=== PATIENT | female | born 1950 | race Native Hawaiian/Other Pacific Islander ===

== ENCOUNTER 2016-06-05 23:37 | Observation (INO) | payer BC ==
[2016-06-05 23:50] VITALS: BMI 25.8
--- NOTE | 2016-06-06 00:13 | ED PDOC ---
Arrival/HPI - General Chief Complaint: High Blood Pressure Time Seen by Provider: 06/05/16 23:45 Historian: Patient - History of Present Illness Narrative History of Present Illness (Text): 06/06/16 00:06 Emmie Rodriguez is a 66 year old female, with a history of hypertension, presents to the emergency department complaining of elevated blood pressure with headache and left arm weakness. Patient states that she has had decreased blood pressure for 4 days and states she has not taken Losartan for that reason. Patient states she only took HCTZ. She states that she developed a headache at 5 :00 pm while watching TV. She states that she checked her blood pressure 2 hours ago which was 180/103 after which she developed left arm weakness. States she took Losartan 2 hours prior. Denies fever, chills, dizziness, chest pain, SOB, nausea, vomiting, diarrhea, or any other complaints at this time. Time/Duration: 1-3 hours Symptom Onset: Gradual Symptom Course: Unchanged Severity Level: Mild Activities at Onset: Light Context: Home Past Medical History - Provider Review Nursing Documentation Reviewed: Yes - Infectious Disease Hx of Infectious Diseases: None - Cardiac Hx Hypertension: Yes - Psychiatric Hx Substance Use: No - Surgical History Hx Dilation and Curettage: Yes Hx Orthopedic Surgery: Yes (R tib/fib fx) Other/Comment: Mammoplasty. Carpal tunnel sx reginald hands - Anesthesia Hx Anesthesia: Yes Hx Anesthesia Reactions: No Hx Malignant Hyperthermia: No Family/Social History - Physician Review Nursing Documentation Reviewed: Yes Family/Social History: No Known Family HX Smoking Status: Never Smoked Hx Alcohol Use: No Hx Substance Use: No Allergies/Home Meds Allergies/Adverse Reactions: Allergies No Known Allergies Allergy (Unverified 06/06/16 00:03) Review of Systems - Physician Review All systems were reviewed & negative as marked: Yes - Review of Systems Constitutional: Normal. absent: Fatigue, Fevers Respiratory: Normal. absent: SOB, Cough, Sputum Cardiovascular: Normal. absent: Chest Pain, Palpitations Gastrointestinal: Normal. absent: Abdominal Pain, Diarrhea, Nausea, Vomiting Genitourinary Female: Normal. absent: Dysuria Neurological: Headache, Other (left arm weakness ). absent: Dizziness, Focal Weakness, Facial Droop Psychiatric: Normal Physical Exam Vital Signs Reviewed: Yes Vital Signs Pulse Resp BP Pulse Ox 06/06/16 01:43 74 16 142/86 99 Temperature: Afebrile Blood Pressure: Hypertensive Pulse: Regular Respiratory Rate: Normal Appearance: Positive for: Well-Appearing, Non-Toxic, Comfortable Pain Distress: None Mental Status: Positive for: Alert and Oriented X 3 - Systems Exam Head: Present: Atraumatic, Normocephalic Pupils: Present: PERRL Extroacular Muscles: Present: EOMI Conjunctiva: Present: Normal Respiratory/Chest: Present: Clear to Auscultation, Good Air Exchange. No: Respiratory Distress, Accessory Muscle Use Cardiovascular: Present: Regular Rate and Rhythm, Normal S1, S2. No: Murmurs Abdomen: Present: Normal Bowel Sounds. No: Tenderness, Distention, Peritoneal Signs Upper Extremity: Present: Normal Inspection, Normal ROM, NORMAL PULSES, Other ( good special education kindergarten teacher strength. No drift noted ). No: Cyanosis, Edema Lower Extremity: Present: Normal Inspection, NORMAL PULSES, Normal ROM. No: Edema Neurological: Present: GCS=15, CN II-XII Intact, Speech Normal Skin: Present: Warm, Dry, Normal Color. No: Rashes Psychiatric: Present: Alert, Oriented x 3, Normal Insight, Normal Concentration Medical Decision Making ED Course and Treatment: 06/06/16 00:00 Impression: A 66 year old female who presents to ed with headache since 5 pm yesterday and left arm weakness for past 2 hours. On PE, patient has good special education kindergarten teacher strength, no drift, no facial droop, and normal speech. Differential Diagnosis: Left arm weakness: r/o stroke Plan: -- EKG -- CT Head -- Labs, cardiac enzymes -- CXR Progress Notes: 06/06/16 00:03 Patient has left arm weakness. Code stroke initiated. 06/06/16 00:10 Case discussed with , neurologist, who does not recommend tPA administration, secondary to NIHSS score of 0. No weakness or numbness on physical exam. Aspirin ordered. 06/06/16 00:22 CT Head results reviewed: IMPRESSION: No acute findings. 06/06/16 01:19 CXR interpreted by me: No active disease. Case was discussed with Dr. Lutz who agrees to place her on telemetry obs for headache with subjective left arm weakness r/o CVA. - Critical Care Critical Care Minutes: 30 minutes - Lab Interpretations Lab Results: 06/06/16 00:15 06/06/16 00:15 Lab Results 06/06/16 00:15: WBC 7.8, RBC 4.56, Hgb 14.3, Hct 40.0, MCV 87.7, MCH 31.4, MCHC 35.8, RDW 12.8, Plt Count 236, MPV 10.9, Gran % 60.1, Lymph % (Auto) 26.6, [place] % (Auto) 7.4 H, Eos % (Auto) 5.4 H, Baso % (Auto) 0.5, Gran # 4.69, Lymph # 2.1 , [place] # 0.6, Eos # 0.4, Baso # 0.04, PT 10.6, INR 0.98, APTT 26.5, Sodium 139, Potassium 3.9, Chloride 101, Carbon Dioxide 31, Anion Gap 11, BUN 26 H, Creatinine 0.8, Est GFR ( Amer) > 60, Est GFR (Non-Af Amer) > 60, Random Glucose 122 H, Calcium 9.8, Total Bilirubin 0.5, AST 34, ALT 22, Alkaline Phosphatase 63, Troponin I < 0.01, Total Protein 7.8, Albumin 4.2, Globulin 3.6 , Albumin/Globulin Ratio 1.2, Triglycerides 226 H, Cholesterol 208 H, LDL Cholesterol Direct 116, HDL Cholesterol 48, Blood Type A POSITIVE, Antibody Screen Negative, BBK History Checked No verified bt I have reviewed the lab results: Yes - RAD Interpretation Narrative RAD Interpretations (Text): EXAM: CT Head Without Intravenous Contrast. FINDINGS: Brain: No acute findings. No hemorrhage. No significant white matter disease. No edema. Ventricles: No acute findings. No ventriculomegaly. Bones/joints: No acute findings. No acute fracture. Soft tissues: No acute findings. Sinuses: No acute findings. No acute sinusitis. Mastoid air cells: No acute findings. No mastoid effusion. IMPRESSION: No acute findings. Radiology Orders: 06/06/16 00:04 HEAD W/O (CODE STROKE) [CT] Stat 06/06/16 00:05 CHEST PORTABLE [RAD] Stat Lead Janitor: Radiologist - EKG Interpretation Interpreted by ED Physician: Yes Type: 12 lead EKG - Medication Orders Current Medication Orders: Discontinued Medications Aspirin (Aspirin) 325 mg PO STAT STA Stop: 06/06/16 01:41 NIHSS Scale ([place]) Time Performed: 00:00 - How Severe is the Stoke Baseline Level of Consciousness: 0=Alert LOC to Questions: 0=Both comments correct LOC to commands: 0=Obeys both correctly Best Gaze: 0=Normal Visual: 0=No visual loss Facial: 0=Normal Motor Arm - Left: 0=No drift Motor Arm - Right: 0=No drift Motor Leg - Left: 0=No drift Motor Leg - Right: 0=No drift Limb Ataxia: 0=Absent Sensory: 0=Normal Best Language: 0=No aphasia Dysarthia: 0=Normal articulation Extinction & Inattention (Neglect): 0=Normal, no object Score: 0 Risk Level: No Stroke Risk rTPA Inclusion/Exclusion - Refusal of Treatment Patient Refused Treatment: No - Inclusion Criteria for Altepase Patient is 18 years or Older: Yes The Clinical Diagnosis of Ischemic Stroke That is Causing a Potentially Disabling Neurological Deficit: Yes Time of Onset is Well Established to be Less Than 270 Minute Before Treatment Would Begin: Yes Risk/Benefit Discussed With Patient/Family Member Present: No - Exclusion Criteria for Altepase Uncontrolled Hypertension at Time of Treatment (Systolic BP above 185 or Diastolic BP above 110 mmHg): No - Warning to TPA With Conditions Following Conditions Weighed Against Anticipated Benefit: Yes Condition: Stroke Serevity Too Mild - Scribe Statement The provider has reviewed the documentation as recorded by the Cristi Muniz Provider Attestation: All medical record entries made by the Ortizibmarquez were at my direction and personally dictated by me. I have reviewed the chart and agree that the record accurately reflects my personal performance of the history, physical exam, medical decision making, and the department course for this patient. I have also personally directed, reviewed, and agree with the discharge instructions and disposition. Disposition/Present on Arrival - Present on Arrival Any Indicators Present on Arrival: No History of DVT/PE: No History of Uncontrolled Diabetes: No Urinary Catheter: No History of Decub. Ulcer: No History Surgical Site Infection Following: None - Disposition Have Diagnosis and Disposition been Completed?: Yes Diagnosis: Cerebrovascular accident (CVA), Hypertension Disposition: HOSPITALIZED Disposition Time: 02:01 Patient Plan: Observation Condition: FAIR
[2016-06-06 00:33] LABS: ADD MANUAL DIFF? NO
[2016-06-06 00:38] LABS: BASO # 0.04 K/mm3 (0.0-2.0); BASO % 0.5 % (0.0-3.0); EOS # 0.4 (0.0-0.7); EOS % 5.4 % (1.5-5.0); GRAN # 4.69 (1.4-6.5); GRAN % 60.1 % (50.0-68.0); LYMPH # 2.1 (1.2-3.4); LYMPH % 26.6 % (22.0-35.0); MEAN CELL VOLUME 87.7 fL (80.0-105.0); MEAN CORPUSCULAR HEMOGLOBIN 31.4 pg (25.0-35.0); MEAN CORPUSCULAR HGB CONC 35.8 g/dl (31.0-37.0); MEAN PLATELET VOLUME 10.9 fl (7.0-11.0); MONO # 0.6 (0.1-0.6); MONO % 7.4 % (1.0-6.0); PLATELET COUNT 236 10^3/uL (120.0-450.0); RED CELL DISTRIBUTION WIDTH 12.8 % (11.5-14.5); WHITE BLOOD COUNT 7.8 10^3/ul (4.5-11.0)
[2016-06-06 00:45] LABS: ALB/GLOB RATIO 1.2 (1.1-1.8); ALKALINE PHOSPHATASE 63 U/L (38-133); ALT/SGPT 22 U/L (7-56); AST/SGOT 34 U/L (15-39); BILIRUBIN,TOTAL 0.5 mg/dL (0.2-1.3); BLOOD UREA NITROGEN 26 mg/dL (7-21); CALCIUM 9.8 mg/dL (8.4-10.5); CARBON DIOXIDE 31 mmol/L (21-33); CHLORIDE 101 mmol/L (98-107); CHOLESTEROL 208 mg/dL (130-200); GFR AFRICAN-AMERICAN > 60; GLUCOSE,RANDOM 122 mg/dL (70-110); INR 0.98 (0.93-1.08); PARTIAL THROMBOPLASTIN TIME 26.5 Seconds (23.7-30.8); POTASSIUM 3.9 mmol/L (3.6-5.0); SODIUM 139 mmol/L (132-148); TOTAL PROTEIN 7.8 g/dL (5.8-8.3)
[2016-06-06 00:54] LABS: TROPONIN I < 0.01 ng/mL
--- NOTE | 2016-06-06 07:28 | CT ---
PROCEDURE: CT HEAD WITHOUT CONTRAST. HISTORY: Headache with left arm weakness COMPARISON: None available. TECHNIQUE: Axial computed tomography images were obtained through the head/brain without intravenous contrast. Radiation dose: Total exam DLP = 688.17 mGy-cm. FINDINGS: HEMORRHAGE: No intracranial hemorrhage. BRAIN: Sorto-white matter differentiation is preserved. There is no mass, mass effect or abnormal extra-axial fluid collection. There are symmetric senile calcifications in bilateral globus paladii. VENTRICLES: The ventricles are normal in size, shape and configuration. CALVARIUM: The skull base and calvarium are normal. PARANASAL SINUSES: Predominantly clear. MASTOID AIR CELLS: Predominantly clear. OTHER FINDINGS: None. IMPRESSION: No acute intracranial abnormality. If there is a persistent focal neurologic deficit and an ongoing clinical concern for acute infarction, an MRI of the brain without intravenous contrast would be a more sensitive modality for evaluation of hyperacute/acute ischemic infarction. A preliminary report was provided by [employer] services.
[2016-06-06 08:22] LABS: HEMATOCRIT 38.4 % (36.0-48.0); MEAN CELL VOLUME 87.3 fL (80.0-105.0); MEAN CORPUSCULAR HEMOGLOBIN 30.2 pg (25.0-35.0); MEAN CORPUSCULAR HGB CONC 34.6 g/dl (31.0-37.0); MEAN PLATELET VOLUME 11.2 fl (7.0-11.0); RED CELL DISTRIBUTION WIDTH 12.7 % (11.5-14.5); WHITE BLOOD COUNT 6.7 10^3/ul (4.5-11.0)
[2016-06-06 08:28] LABS: ALB/GLOB RATIO 1.1 (1.1-1.8); ALKALINE PHOSPHATASE 56 U/L (38-133); ALT/SGPT 26 U/L (7-56); AST/SGOT 32 U/L (15-39); BILIRUBIN,TOTAL 0.5 mg/dL (0.2-1.3); BLOOD UREA NITROGEN 20 mg/dL (7-21); CALCIUM 9.4 mg/dL (8.4-10.5); CARBON DIOXIDE 29 mmol/L (21-33); CHLORIDE 102 mmol/L (98-107); GFR AFRICAN-AMERICAN > 60; GLUCOSE,RANDOM 103 mg/dL (70-110); POTASSIUM 3.4 mmol/L (3.6-5.0); SODIUM 140 mmol/L (132-148); TOTAL PROTEIN 7.2 g/dL (5.8-8.3)
--- NOTE | 2016-06-06 09:12 | RAD ---
HISTORY: code stroke COMPARISON: No prior. FINDINGS: LUNGS: No active pulmonary disease. PLEURA: No significant pleural effusion identified, no pneumothorax apparent. CARDIOVASCULAR: Normal. OSSEOUS STRUCTURES: No significant abnormalities. VISUALIZED UPPER ABDOMEN: Normal. OTHER FINDINGS: None. IMPRESSION: No active disease.
--- NOTE | 2016-06-06 10:25 | CARD ---
APPROVED REPORT EKG Measurement Heart [id number] VT [id number] [id number] <Conclusion> Normal sinus rhythm Small inferior q waves NSSTW changes
--- NOTE | 2016-06-06 10:30 | MRI ---
PROCEDURE: MRI BRAIN WITHOUT CONTRAST HISTORY: headache COMPARISON: None. TECHNIQUE: Multiplanar, multisequence MR images of the brain were obtained without intravenous contrast enhancement. FINDINGS: HEMORRHAGE: None DWI: No evidence of an acute or early subacute infarction. BRAIN PARENCHYMA: No mass effect or edema. No atrophy or chronic microvascular ischemic changes. VENTRICLES: Unremarkable. No hydrocephalus. CRANIUM: Unremarkable. ORBITS: Grossly unremarkable. PARANASAL SINUSES/MASTOIDS: Clear VASCULAR SYSTEM: Skull base flow voids intact. OTHER FINDINGS: None. IMPRESSION: Unremarkable non contrast enhanced MRI of the brain.
--- NOTE | 2016-06-06 11:33 | CON ---
DATE: 06/06/2016 REASON FOR CONSULTATION: Headache and left arm heaviness. HISTORY OF PRESENTING ILLNESS: The patient is a 66-year-old female who I have been asked for evaluat ion of headaches and left arm heaviness. The patient was at home and noticed that she was experienci ng headache. At that time, she took her blood pressure and it was in 150s. Later on, she continued to have increase in her blood pressure and it went up to 180s, and she decided to come to the Emergen cy Room. She was experiencing headache mainly in the back of the head. Headache was not associated with any nausea, vomiting, photophobia, or phonophobia. Once the blood pressure got better, her head ache also got better. She was experiencing some heaviness in the left arm. She did not have any wea kness in her left arm or leg. Denied any numbness, tingling sensation in arm or leg. At the moment, she feels a lot better. REVIEW OF SYSTEMS: Denies any dizziness, chest pain, shortness of breath, abdominal pain, constipati on, diarrhea, dysuria, pyuria, cough, or sputum production. PAST MEDICAL HISTORY: Hypertension. MEDICATIONS AT HOME: Include hydrochlorothiazide, Crestor, and Cozaar. ALLERGIES: ADHESIVE TAPE. SOCIAL HISTORY: Denies smoking, use of alcohol, or illicit drugs. FAMILY HISTORY: Reviewed and noncontributory to the case. GENERAL PHYSICAL EXAMINATION: The patient is a middle-aged female lying on the bed in no acute distress. Her blood pressure is 121/75, heart rate is 67 per minute, breathing at a rate of 16 per minute, temp erature is 98.2 degrees Fahrenheit. HENT EXAMINATION: Normocephalic, atraumatic. NECK: Supple. There are no carotid bruits. LUNGS: Clear. CARDIOVASCULAR SYSTEM EXAMINATION: S1 and S2 audible with no murmurs. ABDOMEN: Soft, nontender. Bowel sounds are present. NEUROLOGIC EXAMINATION: MENTAL STATUS: The patient is awake, alert, oriented to time, place, person. Speech is fluent. Nam ing and repetition normal. Memory and cognition are intact. CRANIAL NERVE EXAMINATION: Pupils are 4 mm, bilaterally reactive to light. Visual maya are full. Extraocular movements are intact. There is no facial asymmetry. Palate is upgoing bilaterally and tongue is midline. MOTOR EXAMINATION: Tone is normal. Power is 5/5 bilaterally in all extremities. Reflexes +2 and sy mmetrical. Plantars downgoing bilaterally. CEREBELLAR EXAMINATION: Hhdhiy-[id number] shows no dysmetria. SENSORY EXAMINATION: Intact to soft touch and pinprick. GAIT: Narrow based. Labs reviewed shows WBC of 6.7, hemoglobin 13.3, hematocrit of 38.4 and platelets of 231. INR is 0.9 8. Sodium is 140, potassium is 3.4, chloride 102, carbon dioxide content 29, BUN of 20, creatinine 0 .6, and glucose of 103. She had a CT scan of the head done which is negative for any acute intracranial pathology. IMPRESSION: Headaches, most likely secondary to her elevated blood pressure. RECOMMENDATIONS: 1. The patient to have MRI of the brain without contrast. 2. She never had left arm weakness. It was just a heaviness in the left arm which is also completely resolved. 3. The patient to have p.r.n. Tylenol or nonsteroidal anti-inflammatory drugs like ibuprofen or napro xen for headaches. 4. If the patient's MRI of the brain is negative for any acute intracranial pathology, then the patie nt may be discharged with outpatient followup. Thank you for the opportunity to participate in the care of this patient. Octavio Villalpando MD cc: [id number] TT: 06/06/2016 11:32:58 Confirmation # [id number] Dictation # [id number] indira
[2016-06-06] MEDS ORDERED: Potassium Chloride 20 mEq ER Tab PO SCH (16:00)
--- NOTE | 2016-06-06 16:22 | CON ---
DATE: 06/06/2016 REASON FOR CONSULTATION: Left arm weakness. 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 The patient stated th at the onset of left arm weakness was acute and it took a few hours to relieve, as the blood pressure was controlled. In the Emergency Room, the patient denied any associated arm numbness, speech diffi culty or dizziness. The patient denies any other extremity weakness or numbness. The patient is rosanna saxena of any history of stroke in the past and denies any prior cardiac history other than a history o f hypertension. PAST MEDICAL HISTORY: The patient recently underwent a liver cyst drainage, and the pathology report is still pending. REVIEW OF SYSTEMS: No nausea or vomiting. No blurry vision, dysarthria, imbalance or fall. MEDICATIONS: Cozaar 50 mg once a day, aspirin 81 mg once a day, Lipitor 80 mg once a day, hydrochlor othiazide 12.5 mg once a day, Tricor 145 mg once a day. PHYSICAL EXAMINATION: GENERAL: The patient is a middle-aged female who does not appear to be in any distress. VITAL SIGNS: Blood pressure 138/85, heart rate 68, temperature 98.2, respiration 20. HEENT: Normocephalic. NECK: No JVD. CHEST: Clear. HEART: S1, S2 regular. ABDOMEN: Soft. EXTREMITIES: No edema. LABORATORY DATA: CBC of 6.7, hemoglobin 13.3, hematocrit 38.4, platelet count 231,000. SMA-7: Sodi um 140, potassium 3.4, chloride 102, CO2 29, glucose 103, BUN 20, creatinine 0.6. Two sets of tropon ins are negative. Triglycerides 226, total cholesterol 208. Head CT scan without contrast: No acute findings. Noncontrast brain MRI: No acute findings. EKG r evealed normal sinus rhythm. ASSESSMENT: 1. Uncontrolled hypertension. 2. Consider transient ischemic attack. 3. Hyperlipidemia. 4. Hypokalemia. RECOMMENDATIONS: Continue current Cozaar at 50 mg once a day, aspirin 81 mg once a day, Lipitor at 8 0 mg once a day, hydrochlorothiazide 12.5 mg once a day, Tricor 145 mg once a day. Start K-Dur at 20 mEq once a day. Obtain an echocardiogram. Consider carotid Doppler. Baudilio Harrell MD cc: [id number] TT: 06/06/2016 16:21:56 Confirmation # [id number] Dictation # [id number] mn
--- NOTE | 2016-06-07 04:52 | HP ---
CHIEF COMPLAINT: High blood pressure, headache, left upper extremity heaviness. HISTORY OF PRESENT ILLNESS: The patient is a 66-year-old female with history of hypertension, came t o the Emergency Room complaining about high blood pressure, headache, left arm weakness. The patient stated that she was having low blood pressure for 4 days and she states that she has not taken Losar gamino for that reason. The patient stated that she took only HCTZ. She states that she developed a he adache in the evening when she was watching television and checked her blood pressure 2 hours ago whi ch was 180/103 as per patient, she developed left arm weakness and then she took Losartan, 2 hours pr ior to coming to the Emergency Room. Denies fever, chills, nausea, vomiting and diarrhea. I saw the patient in her room in the presence of her son. The patient was feeling comfortable, seen by the ca rdiologist and neurologist. PAST MEDICAL HISTORY: Orthopedic surgery, right tibia and fibula fracture, carpal tunnel syndrome burgess rgery bilaterally. FAMILY HISTORY: Father and mother noncontributory. HABITS: Never smoked, no drugs, no ethanol. ALLERGIES: The patient is not allergic with any medication. REVIEW OF SYSTEMS: The patient is seen and examined on the bedside in her room, looks comfortable. Headache is better. No fever, no chills, no nausea, vomiting, no shortness of breath. PHYSICAL EXAMINATION: VITAL SIGNS: Temperature 98.3, pulse 72, blood pressure 129/82, respiratory rate 18. HEENT: Normocephalic, atraumatic. EYES: PERRLA. Extraocular muscles intact. Conjunctivae pink. Eyelids unremarkable. Nose patent. NECK: Supple. No carotid bruit, JVD or thyromegaly. CHEST: Bilaterally symmetrical. HEART: S1, S2 positive. LUNGS: Clear to auscultation. ABDOMEN: Soft. Bowel sounds present. No organomegaly. EXTREMITIES: No edema, no cyanosis. NEUROLOGIC: The patient is awake, alert and moving all 4 extremities. No focal deficits. LABORATORY DATA: White blood cells 6.7, hemoglobin 13.3, hematocrit 37.3, platelets 231. Sodium 140 , potassium 3.4, BUN 20, creatinine 0.6. Triglycerides 226, cholesterol 208. ASSESSMENT AND PLAN: The patient is a 66-year-old lady with hypercholesterolemia, hypertriglyceridem ia, hyperglycemia, hypokalemia. She is seen by the calculating machine operator, Dr. Harrell, to rule out arrhythm ias, history of liver cysts or drainage, history of hypertension, history of transient ischemic attac k as per calculating machine operator, continue Cozaar, aspirin, Lipitor, hydrochlorothiazide, Tricor for hypertrigly ceridemia, started K-Dur 20 mEq once a day and sis he wanted to obtain echocardiography, consider car otid Doppler. I ordered a carotid Doppler as per the calculating machine operator's request. The patient is seen by the neurologist by Dr. Villalpando. Headache may be secondary to her elevated blood pressure. CAT scan, M RI is done, reviewed by me, now left arm weakness is better. He suggested noninflammatory nonsteroid al drugs like ibuprofen or naproxen for headache. Actually neurologist is clearing the patient for d ischarge. Tomorrow we will do bilateral carotid Doppler of the neck, repeat, fasting lipid profile. According to the patient, whatever cholesterol and triglyceride we have, is not fasting. Length of time discussion done with the patient and the patient's son. We will follow up. Bharati Lutz MD cc: [id number] TT: 06/07/2016 04:51:45 hn
[2016-06-07 07:31] VITALS: RESP 20; TEMP 98.3; O2SAT 97
[2016-06-07 07:32] LABS: BLOOD UREA NITROGEN 18 mg/dL (7-21); CALCIUM 9.4 mg/dL (8.4-10.5); CARBON DIOXIDE 31 mmol/L (21-33); CHLORIDE 102 mmol/L (98-107); CHOLESTEROL 191 mg/dL (130-200); GFR AFRICAN-AMERICAN > 60; GLUCOSE,RANDOM 97 mg/dL (70-110); SODIUM 140 mmol/L (132-148)
[2016-06-07 12:08] VITALS: BP 112/77; PULSE 69
[2016-06-07] MEDS ORDERED: Pneumococcal 23-Valent Vaccine IM ONE (12:09)
--- NOTE | 2016-06-08 00:09 | CARD ---
APPROVED REPORT EXAM: Two-dimensional and M-mode echocardiogram with Doppler and color Doppler. INDICATION CVA/TIA 2D DIMENSIONS Left Atrium (2D)3.4 (1.6-4.0cm)IVSd1.3 (0.7-1.1cm) Aortic Root (2D)3.4 (2.0-3.7cm)LVDd3.0 (3.9-5.9cm) PWd1.3 (0.7-1.1cm)LVDs1.6 (2.5-4.0cm) FS (%) 46.8 %LVEF (%)79.7 (>50%) M-Mode DIMENSIONS Aortic Cusp Exc.2.00 (1.5-2.0cm) Mitral Valve MV E Aneygibm91.2cm/sMV A Vdvaldyu45.2cm/sE/A ratio1.0 TDI Lateral E' Peak V7.80cm/sMedial E' Peak V4.78cm/sE/Lateral E'8.2 E/Medial E'13.4 Pulmonary Valve PV Peak Pdfgcyql48.2cm/sPV Peak Grad.3mmHg Tricuspid Valve TR Peak Okuqckgi573af/sRAP [id number] Peak Gr.20mmHg [id number] LEFT VENTRICLE The left ventricle is normal size. There is mild concentric left ventricular hypertrophy. The left ventricular function is normal. The left ventricular ejection fraction is within the normal range. There is normal LV segmental wall motion. Transmitral Doppler flow pattern is Grade I-abnormal relaxation pattern. RIGHT VENTRICLE The right ventricle is normal size. There is normal right ventricular wall thickness. The right ventricular systolic function is normal. ATRIA The left atrium size is normal. The right atrium size is normal. AORTIC VALVE The aortic valve is mildly thickened. No aortic regurgitation is present. There is no aortic valvular stenosis. MITRAL VALVE The mitral valve is mildly thickened. TRICUSPID VALVE There is trace tricuspid regurgitation. There is no pulmonary hypertension. GREAT VESSELS The aortic root displays mild to moderate sclerocalcific changes of the aortic root. The IVC is normal in size and collapses >50% with inspiration. PERICARDIAL EFFUSION There is a trace loculated anterior pericardial effusion. <Conclusion> The left ventricle is normal size. There is mild concentric left ventricular hypertrophy. The left ventricular function is normal. The left ventricular ejection fraction is within the normal range. There is normal LV segmental wall motion. Transmitral Doppler flow pattern is Grade I-abnormal relaxation pattern.
--- NOTE | 2016-06-08 10:53 | DS ---
CHIEF COMPLAINT: High blood pressure, headache, left upper extremity heaviness. HISTORY OF PRESENT ILLNESS: The patient is a 66-year-old female with a history of hypertension. Came to the Emergency Room complaining of high blood pressure , headache, left upper extremity weakness. According to patient, she was checking her blood pressure every day at home. Four or five days ago, her blood pressure was low. She stopped taking her medication. Now, she has headache, dizziness, left upper extremity weakness. She checked her blood pressure and it was 180/103. Then, she took her medicine and came to [facility] Emergency Room. We kept her, did CAT scan of the head, MRA of the brain. The patient was seen by neurologist, Dr. Villalpando, plaster form maker, Dr. Harrell. Echocardiography was done. Carotid Doppler of the neck was done. The patient was feeling better. Even blood pressure became a little bit low. Cholesterol was checked again. First set of cholesterol was after eating. The second cholesterol was fasting. Fasting lipid profile was done. Her numbers were good. Then, discharged patient home after clearing plaster form maker and neurologist. Follow up as outpatient in my office on Thursday and after that, plaster form maker and neurologist. The patient was educated to take blood pressure medicine. PAST MEDICAL HISTORY: Orthopedic surgery, right tibia and fibula fractures, carpal tunnel syndrome surgery bilaterally. FAMILY HISTORY: Father and mother noncontributory. HABITS: Never smoked, no drugs, no ethanol. ALLERGIES: The patient is not allergic with any medication. REVIEW OF SYSTEMS: The patient seen and examined on the bedside, looks comfortable. No nausea, vomiting, diarrhea. No hematuria, no hematochezia. No swelling of the legs. No chest pain. No headache, no dizziness. Numbness is gone. PHYSICAL EXAMINATION: VITAL SIGNS: Blood pressure 112/70, temperature 98.3, pulse 69, respiratory rate 20. HEENT: Head normocephalic, atraumatic. Eyes: PERRLA. Extraocular muscles intact. Conjunctivae pink. Eyelids unremarkable. Nose patent. Mucous membranes moist. NECK: Supple. No carotid bruit, no JVD, no thyromegaly. CHEST: Bilaterally symmetrical. HEART: S1, S2 positive. LUNGS: Clear to auscultation. ABDOMEN: Soft. Bowel sounds positive. No organomegaly. EXTREMITIES: No edema, no cyanosis. NEUROLOGIC: The patient is awake, alert. Follows simple commands. MEDICATIONS: Given in the hospital were Cozaar, Ecotrin, K-Dur, Lipitor, hydrochlorothiazide, Pneumovax, Tricor, but patient was discharged on home Cozaar 25 mg, aspirin, Ecotrin 81 mg p.o. daily. Potassium was replaced. She does not need that. She does not want to continue with Lipitor because cholesterol number was good. She does not want to take Tricor. LABORATORIES: White blood cells 6.4, hemoglobin 13.3, hematocrit 38.4, platelets 231. Sodium 140, potassium 4.0, BUN 18, creatinine 0.7, calcium 9.4. First set of trigcylcerides was 226 and repeat is 116. First cholesterol was 208, repeat is 191. The patient is discharged on lifestyle modification. ASSESSMENT AND PLAN: The patient is a 66-year-old lady with hypokalemia, replaced, hyperglycemia, but repeat is within normal limits, hypertriglyceridemia, repeat is within normal limits, hypercholesterolemia, repeat is within normal limits, history of accelerated hypertension, headache, left upper extremity numbness. Seen by plaster form maker and neurologist. Went for echocardiography and bilateral carotid Doppler of the neck, but results are pending. It is the weekend. These studies were not read by the appropriate physicians. The patient wanted to go home. Discharged home. Follow up as outpatient. We discussed all these numbers. The patient was educated for lifestyle modification and anxiety management. We will see patient on Thursday in my office. Bharati Lutz MD cc: [id number] TT: 06/08/2016 10:52:17 en MTDD
--- NOTE | 2016-06-08 11:57 | US ---
PROCEDURE: Bilateral carotid artery duplex ultrasound HISTORY: Carotid stenosis PHYSICIAN(S): Miguel Peck MD. TECHNIQUE: Duplex sonography and color-flow Doppler were used to evaluate the carotid bifurcations and limited segments of the vertebral arteries bilaterally. The exam is somewhat limited by tortuous vessels FINDINGS: There is mild smooth hypoechoic plaque noted at the carotid bifurcations bilaterally. The peak systolic velocity in the proximal right internal carotid artery is 120 cm/sec. This corresponds to a 40-59 percent proximal right ICA stenosis. Normal systolic velocities are noted in the proximal right external carotid artery. There is antegrade flow in the right vertebral artery. The peak systolic velocity in the proximal left internal carotid artery is 117 cm/sec. This corresponds to a 40-59 percent proximal left ICA stenosis. Normal systolic velocities are noted in the proximal left external carotid artery. There is antegrade flow in the left vertebral artery. IMPRESSION: 1. Bilateral 40-59 percent proximal ICA stenoses. 2. Antegrade flow in both vertebral arteries.
== END 2016-06-07 12:49 | disposition home or self-care (01) ==
LOC: ED 23:37 → ERH 06-06 01:43 → 3RNO 06-06 02:42 → INTOOBSV 06-06 23:03 → OBSVTOIN 06-06 23:03
PROVIDERS: ADMIT Internal Medicine; ATTEND Internal Medicine
DX: I10 Essential (primary) hypertension (principal); E78.00 Pure hypercholesterolemia, unspecified; E78.1 Pure hyperglyceridemia; E87.6 Hypokalemia; I65.23 Occlusion and stenosis of bilateral carotid arteries; Z86.73 Personal history of transient ischemic attack (TIA), and cerebral infarction without residual deficits; R73.9 Hyperglycemia, unspecified; Z91.09 Other allergy status, other than to drugs and biological substances; R51 Headache; R53.1 Weakness; Z23 Encounter for immunization
CPT/HCPCS: 36415; 70450; 70551; 71010; 80048; 80053; 80061; 83036; 84443; 84484; 85025; 85027; 85610; 85730; 86850; 86900; 90732; 93005; 93306; 93880; 99285; G0009; G0378

== ENCOUNTER 2016-06-08 18:09 | Emergency (ER) | payer BC, MEDICARE ==
[2016-06-08 18:09] VITALS: BMI 25.8
[2016-06-08 18:32] VITALS: TEMP 98.2; O2SAT 98
--- NOTE | 2016-06-08 19:03 | ED PDOC ---
Arrival/HPI - General Chief Complaint: High Blood Pressure Time Seen by Provider: 06/08/16 18:30 Historian: Patient - History of Present Illness Narrative History of Present Illness (Text): 06/08/16 18:57 66 y/o female, pmh including htn/internal carotid stenosis 40-59 bilaterally, nkda, c/o abnormally high blood pressure at home today. Pt. stated that she was admitted about 2 days ago for elevated blood pressure and lt. arm weakness, MRI negative, bilateral carotid sonogram performed as well, stated that she was on the cozaar 50mg po qd for years and recently been change to decrease to cozaar 25mg po qd because her blood pressure falls down to 100s/60s which she feels dizziness. Pt. took the cozaar 25mg po qd for the past couple of days, noticed the bp is elevating to 180s/100 and the same case today which scared her to come to the ER. Pt. stated that she doesn't like to take cozaar 50mg po qd again and wants a different class. Pt. stated that she's been on the calcium channel gabriela before which she tolerated well. Pt. has no headache, no dizziness, no chest pain or shortness of breath, no night sweat, no numbness or tingling, no slurred speech, no change in gait or posture, asymptomatic, no other medical or psychological complaints. Past Medical History - Provider Review Nursing Documentation Reviewed: Yes - Infectious Disease Hx of Infectious Diseases: None - Cardiac Hx Cardiac Disorders: Yes Hx Hypertension: Yes - Pulmonary Hx Respiratory Disorders: No - Neurological Hx Neurological Disorder: No - HEENT Hx HEENT Disorder: Yes Hx Cataracts: Yes - Renal Hx Renal Disorder: No - Endocrine/Metabolic Hx Endocrine Disorders: No - Hematological/Oncological Hx Blood Disorders: No - Integumentary Hx Dermatological Disorder: No - Musculoskeletal/Rheumatological Hx Falls: No - Gastrointestinal Hx Gastrointestinal Disorders: Yes Hx Gastroesophageal Reflux: Yes - Genitourinary/Gynecological Hx Genitourinary Disorders: No - Psychiatric Hx Psychophysiologic Disorder: No Hx Substance Use: No - Surgical History Hx Dilation and Curettage: Yes Hx Orthopedic Surgery: Yes (carpal tunnel repair, tib/fib fracture repair) - Anesthesia Hx Anesthesia: Yes Hx Anesthesia Reactions: No Hx Malignant Hyperthermia: No Family/Social History - Physician Review Nursing Documentation Reviewed: Yes Family/Social History: Unknown Family HX Smoking Status: Never Smoked Hx Alcohol Use: No Hx Substance Use: No Allergies/Home Meds Allergies/Adverse Reactions: Allergies adhesive tape Allergy (Verified 06/08/16 18:29) RASH Home Medications: Home Meds Medication Instructions Recorded Confirmed Hydrochlorothiazide [Microzide] 12.5 mg PO DAILY 06/06/16 06/06/16 Losartan [Cozaar] 50 mg PO DAILY 06/06/16 06/06/16 Rosuvastatin Calcium [Crestor] 5 mg PO HS 06/06/16 06/06/16 Review of Systems - Review of Systems Constitutional: absent: Fatigue, Fevers Eyes: absent: Vision Changes ENT: absent: Hearing Changes Respiratory: absent: SOB, Cough Cardiovascular: absent: Chest Pain Gastrointestinal: absent: Abdominal Pain, Nausea, Vomiting Genitourinary Female: absent: Dysuria Musculoskeletal: absent: Arthralgias, Back Pain, Neck Pain, Joint Swelling, Myalgias Skin: absent: Rash, Pruritis, Skin Lesions, Laceration, Abscess, Ulcer, Cellulitis Physical Exam Vital Signs Reviewed: Yes Vital Signs Temp Pulse Resp BP Pulse Ox 06/08/16 18:31 98.2 F 65 18 143/94 H 98 Temperature: Afebrile Blood Pressure: Hypertensive Pulse: Regular Respiratory Rate: Normal Appearance: Positive for: Well-Appearing, Non-Toxic, Comfortable Pain Distress: None Mental Status: Positive for: Alert and Oriented X 3 - Systems Exam Head: Present: Atraumatic, Normocephalic Pupils: Present: PERRL Extroacular Muscles: Present: EOMI Conjunctiva: Present: Normal Ears: Present: NORMAL TM, Normal Canal. No: Erythema Mouth: Present: Moist Mucous Membranes Neck: Present: Normal Range of Motion, Other (no bruits. ) Respiratory/Chest: Present: Clear to Auscultation, Good Air Exchange. No: Respiratory Distress, Accessory Muscle Use Cardiovascular: Present: Regular Rate and Rhythm, Normal S1, S2. No: Murmurs Abdomen: Present: Normal Bowel Sounds. No: Tenderness, Distention, Peritoneal Signs Back: Present: Normal Inspection Upper Extremity: Present: Normal Inspection. No: Cyanosis, Edema Lower Extremity: Present: Normal Inspection. No: Edema Neurological: Present: GCS=15, CN II-XII Intact, Speech Normal, Motor Func Grossly Intact, Gait Normal, Memory Normal, Other (no drift, no focal neurological deficits, negative rhomberg, normal finger to nose test. ) Skin: Present: Warm, Dry, Normal Color. No: Rashes Psychiatric: Present: Alert, Oriented x 3, Normal Insight, Normal Concentration Medical Decision Making ED Course and Treatment: 06/08/16 19:04 -Carotid and MRI results discussed with the patient, advise the continue aspirin and outpatient follow up with her own pmd and vascular surgeon. -I will put the patient on the norvsac 5mg po qd at the lowest dose, advised her to check the BP 2 times daily under non-distress emotion and condition to record it down to bring it to her own pmd for re-evaluation. -Pt. has follow up appointment with Dr. Lutz tomorrow as her own pmd is in the [place]. -Discharge home with norvsac, follow up with your own pmd and vascular surgeon within 2 days for outpatient MRA, return to the ER for any new or worsening signs or symptoms. - PA / MEDICAL BILLING ASSISTANT / Resident Statement MD/DO has reviewed & agrees with the documentation as recorded. Disposition/Present on Arrival - Present on Arrival Any Indicators Present on Arrival: No History of DVT/PE: No History of Uncontrolled Diabetes: No Urinary Catheter: No History of Decub. Ulcer: No History Surgical Site Infection Following: None - Disposition Have Diagnosis and Disposition been Completed?: Yes Diagnosis: Hypertension Disposition: HOME/ ROUTINE Disposition Time: :17 Patient Plan: Discharge Patient Problems: Current Active Problems Problem Status Diagnosed CVA (cerebral vascular accident) Acute Hypertension Acute Condition: GOOD Additional Instructions: Discharge home with norvsac, follow up with your own pmd and vascular surgeon within 2 days for outpatient MRA, decrease salt diet, take your blood pressure and cholestral medication, continue your aspirin at home, NO GYM OR EXERCISE UNTIL YOU ARE CLEAR BY YOUR OWN PMD, return to the ER for any new or worsening signs or symptoms. Prescriptions: amLODIPine [Norvasc] 5 mg PO DAILY #10 tab Referrals: Bharati Lutz MD [Staff Provider] - Follow up with primary Forms: WORK NOTE
[2016-06-08 19:26] VITALS: BP 136/76; PULSE 68; RESP 16
== END 2016-06-08 19:21 | disposition home or self-care (01) ==
LOC: ED 18:09
DX: I10 Essential (primary) hypertension (principal)